=== PATIENT | female | born 1950 | race Caucasian/White ===

== ENCOUNTER 2018-06-29 09:23 | Outpatient (CLI) | payer MEDICARE ==
--- NOTE | 2018-06-29 11:47 | BD ---
DEXA SCAN: Date: 06/29/18 PROVIDED CLINICAL HISTORY: Long-term use of diphosphonates. FINDINGS: Lumbar Spine: BMD (g/cm2) L1 0.809 T-Score: -1.6 L2 0.873 T-Score: -1.4 L3 0.973 T-Score: -1.0 L4 0.953 T-Score: -1.0 L1-L4 0.906 T-Score: -1.3 Femoral Neck: 0.542 T-Score: -2.8 Total Femur: 0.668 T-Score: -2.2 IMPRESSION: Calculated bone mineral density meets WHO criteria for osteoporosis in the left femoral neck and plac es the patient at prominent increased risk for fracture. POS: [facility]
== END 2018-06-29 09:24 | disposition home or self-care (01) ==
LOC: BICMAMMO 09:23
PROVIDERS: ATTEND Family Medicine
DX: Z12.31 Encounter for screening mammogram for malignant neoplasm of breast (principal); Z13.820 Encounter for screening for osteoporosis; M81.0 Age-related osteoporosis without current pathological fracture; Z79.83 Long term (current) use of bisphosphonates
CPT/HCPCS: 77063; 77067; 77080

== ENCOUNTER 2020-11-13 13:13 | Outpatient (CLI) | payer MEDICARE | END 2020-11-13 13:14 | disposition home or self-care (01) | LOC: BICMAMMO 13:13 | PROVIDERS: ATTEND Family Medicine | DX: Z12.31 Encounter for screening mammogram for malignant neoplasm of breast (principal); M85.88 Other specified disorders of bone density and structure, other site; M81.0 Age-related osteoporosis without current pathological fracture | CPT/HCPCS: 77063; 77067; 77080 ==

== ENCOUNTER 2025-01-23 07:45 | Outpatient (CLI) | payer MEDICARE | END 2025-01-23 07:46 | disposition home or self-care (01) | LOC: BICMAMMO 07:45 | PROVIDERS: ATTEND Family Medicine | DX: Z12.31 Encounter for screening mammogram for malignant neoplasm of breast (principal); M85.89 Other specified disorders of bone density and structure, multiple sites; M81.0 Age-related osteoporosis without current pathological fracture | CPT/HCPCS: 77063; 77067; 77080 ==